=== PATIENT | female | born 1945 | race Caucasian/White ===

== ENCOUNTER → 2017-02-11 16:00 | Outpatient (CLI) | payer MEDICARE ==
[2016-11-13 15:04] VITALS: BMI 24.1
[~2017-02-11 16:00] MED LIST: COZAAR25 MG PO; HYDROCODON-ACE1 EAC7 PO; NORVASC10 MG PO
== END | disposition home or self-care (01) ==
LOC: D.MAMMO 14:15
DX: Z12.31 Encounter for screening mammogram for malignant neoplasm of breast (principal)

== ENCOUNTER → 2017-11-06 08:13 | Outpatient (CLI) | payer MEDICARE ==
[2016-11-13 15:04] VITALS: BMI 24.1
== END | disposition home or self-care (01) ==
LOC: D.CT 08:13
DX: R10.9 Unspecified abdominal pain (principal); K40.90 Unilateral inguinal hernia, without obstruction or gangrene, not specified as recurrent

== ENCOUNTER 2018-06-15 19:00 | Outpatient (CLI) | payer MEDICARE ==
[2016-11-13 15:04] VITALS: BMI 24.1
== END 2018-06-15 23:59 | disposition home or self-care (01) ==
LOC: D.MAMMO 19:00
DX: Z12.31 Encounter for screening mammogram for malignant neoplasm of breast (principal)

== ENCOUNTER 2018-07-08 13:21 | Outpatient (CLI) | payer MEDICARE ==
[~2018-07-08] VITALS: Ht 165.1 cm; Wt 65.9 kg
[2018-07-08 13:53] VITALS: BP 144/75; Ht 165.1 cm; Wt 65.9 kg
== END 2018-07-08 14:15 ==
LOC: D.OPS 13:21
DX: M81.0 Age-related osteoporosis without current pathological fracture (principal)

== ENCOUNTER 2019-01-12 13:14 | Outpatient (CLI) | payer MEDICARE ==
[~2019-01-12] VITALS: Ht 165.1 cm; Wt 68.2 kg
[2019-01-12 14:27] VITALS: BP 168/79; Ht 165.1 cm; Wt 68.2 kg
== END 2019-01-12 14:33 | disposition home or self-care (01) ==
LOC: D.OPS 13:14
PROVIDERS: ATTEND Family Medicine
DX: M81.0 Age-related osteoporosis without current pathological fracture (principal); Z79.52 Long term (current) use of systemic steroids; M19.90 Unspecified osteoarthritis, unspecified site; Z01.812 Encounter for preprocedural laboratory examination

== ENCOUNTER 2019-05-17 08:00 | Outpatient (CLI) | payer MEDICARE ==
[2019-01-12 14:27] VITALS: BMI 25.0
== END 2019-05-17 23:59 | disposition home or self-care (01) ==
LOC: D.MAMMO 08:00
PROVIDERS: ATTEND Family Medicine
DX: Z12.31 Encounter for screening mammogram for malignant neoplasm of breast (principal)

== ENCOUNTER 2020-02-03 11:31 | Outpatient (CLI) | payer MEDICARE ==
[~2020-02-03] VITALS: Ht 165.1 cm; Wt 72.7 kg
[2020-02-03 11:43] VITALS: Ht 165.1 cm; Wt 72.7 kg
--- NOTE | 2020-02-03 11:53 | NUR ---
DISCHARGE INSTRUCTIONS PROVIDED, INJECTION GIVEN IN L ARM. AMBULATED OUT WITH .
== END 2020-02-03 11:54 | disposition home or self-care (01) ==
LOC: D.OPS 11:31
PROVIDERS: ATTEND Family Medicine
DX: Z76.89 Persons encountering health services in other specified circumstances (principal)